=== PATIENT | male | born 1990 | race Caucasian/White ===

== ENCOUNTER 2016-12-10 13:35 | Emergency (ER) | payer OTHER ==
--- NOTE | ~2016-12-10 | CR132 ---
[facility]. [facility] A Service of [facility] & [facility] RADIOLOGY TEXT RESULTS PATIENT: KAILEE SANCHEZ LOCATION: SED : 86 UNIT #: [id number] AGE: [address]: Miriam Em APRN SEX: M ORDER DR: [id number] [place] [id number] E MR#: [id number] Acc #: [id number] NAME: KAILEE SANCHEZ : 1990 SEX: M STUDY DATE/TIME: 12/10/2016 14:32 UNIT: SED ROOM: STUDY DESCRIPTION: CR Forearm 2 View Lt Attending Physician: Miriam Em A.P.R.N. Ordering Physician: Miriam Em A.P.R.N. Primary Care Physician: Adriana Irizarry M.D. MEDICAL IMAGING REPORT This report is preliminary unless electronic signature is present. EXAM Left forearm HISTORY Puncture with nail medial side of forearm today. FINDINGS 2 views of the left forearm demonstrates no fracture or foreign body. Subtle lucency in the volar aspect of the distal forearm could represent soft tissue gas. Correlate to site of puncture. The visualized wrist and elbow joint are unremarkable. IMPRESSION Subtle lucency within the volar aspect of the distal forearm could represent a small amount of soft tissue gas. Correlate with site of puncture wound, otherwise unremarkable exam. Dictated by... Pipo Krueger M.D. THIS IS AN ELECTRONICALLY VERIFIED REPORT Pipo Krueger M.D. at 12/12/2016 10:35 PM Stefania TD: 12/10/2016 15:29 JOB #: [id number] MEDICAL IMAGING REPORT Page 1 of 1
[~2016-12-10 13:35] MED LIST: AMOXICILLIN500 M1 PO; AMOXICILLIN875 MG PO; BUSPAR; CIPRO PO; NO MEDICATIONS; PHENERGAN PO; PSYCH MED; SEROQUEL XR150 MG PO; ULTRAM PO
== END 2016-12-10 15:30 | disposition home or self-care (01) ==
LOC: SED 13:35
DX: S61.532A Puncture wound without foreign body of left wrist, initial encounter (principal); F17.200 Nicotine dependence, unspecified, uncomplicated; X58.XXXA Exposure to other specified factors, initial encounter
CPT/HCPCS: 73090; 90471; 90715; 99283